=== PATIENT | female | born 1930 | race Caucasian/White ===

== ENCOUNTER 2017-02-17 13:40 | Inpatient (IN) | payer MEDICARE, OTHER ==
[~2017-02-17] VITALS: Ht 165.1 cm; Wt 73.0 kg
[2017-02-17] VITALS: BP 174/71
[2017-02-17 14:15] LABS: BASOPHILS % (AUTO) 0.4 % (0-1); EOSINOPHILS # (AUTO) 0.1 X10'3 (0-0.9); EOSINOPHILS % (AUTO) 1.2 % (0-6); HEMATOCRIT 41.8 % (35.0-45.0); HEMOGLOBIN 13.9 g/dl (12.0-16.0); LYMPHOCYTES # (AUTO) 1.7 X10'3 (1.1-4.8); LYMPHOCYTES % (AUTO) 17.7 % (21-51); MEAN CORPUSCULAR HEMOGLOBIN 30.1 PG (27.0-31.0); MEAN CORPUSCULAR HGB CONC 33.3 % (33.0-36.5); MEAN CORPUSCULAR VOLUME 90.5 FL (78-98); MEAN PLATELET VOLUME 7.7 FL (7.4-10.4); MONOCYTES # (AUTO) 0.9 X10'3 (0-0.9); MONOCYTES % (AUTO) 9.1 % (2-12); NEUTROPHILS # (AUTO) 6.8 X10'3 (1.8-7.7); NEUTROPHILS % (AUTO) 71.6 % (42-75); PLATELET COUNT 352 X10'3 (140-440); RED BLOOD COUNT 4.62 X10'6 (4.20-5.60); RED CELL DISTRIBUTION WIDTH 14.1 % (11.5-14.5); WHITE BLOOD COUNT 9.5 X10'3 (4.5-11.0)
[2017-02-17 14:25] LABS: INR 1.8 INR; PROTHROMBIN TIME 18.5 SECONDS (9.0-12.0)
[2017-02-17 14:30] LABS: ALANINE AMINOTRANSFERASE 318 U/L (12-78); ALBUMIN 3.7 G/DL (3.4-5.0); ALKALINE PHOSPHATASE 265 IU/L (46-116); ANION GAP 8 (8-16); ASPARTATE AMINO TRANSFERASE 584 U/L (10-37); BILIRUBIN,TOTAL 1.5 MG/DL (0.1-1.0); BLOOD UREA NITROGEN 19 MG/DL (7-18); BUN/CREATININE RATIO 19.2 (6.6-38.0); CALCIUM 10.3 MG/DL (8.5-10.1); CHLORIDE 102 MMOL/L (99-107); CREATININE 0.99 MG/DL (0.40-0.90); GLUCOSE 106 MG/DL (70-104); POTASSIUM 4.5 MMOL/L (3.5-5.1); SODIUM 141 MMOL/L (135-145); TOTAL PROTEIN 7.3 G/DL (6.4-8.2); eGFR 53 ML/MIN
[2017-02-17 16:00] LABS: CLARITY,URINE Clear (Clear); COLOR,URINE Dark Yellow (Yellow); GLUCOSE, URINE Negative (Neg); KETONES,URINE Trace mg/dl (Neg); LEUKOCYTE ESTERASE ,URINE Trace (Neg); NITRITES, URINE Negative (Neg); OCCULT BLOOD,URINE Negative (Neg); PROTEIN,URINE Negative (Neg)
[2017-02-17 16:02] LABS: UA COLLECTION TYPE CLN CATCH MIDSTREAM
[2017-02-17 16:07] LABS: BACTERIA,URINE NONE SEEN /HPF (Neg); MUCUS STRANDS NONE SEEN /LPF (Neg); RBC,URINE NONE SEEN /HPF (0-2); SQUAMOUS EPITHELIAL CELL,UR FEW /LPF (FEW); WBC,URINE NONE SEEN /HPF (0-4)
[2017-02-17 16:17] LABS: LIPASE 219 U/L (73-393); TROPONIN I < 0.04 NG/ML (0.0-0.05)
[2017-02-17] MEDS ORDERED: labetalol 20mg/4ml (5mg/ml) syringe IV ONE ×2 (16:25→17:20)
[2017-02-17] MEDS ORDERED: nitroGLYCERIN-Tridil 50MG/D5W 250 ML IV ONE (17:00)
[2017-02-17] MEDS ORDERED: hydrALAZINE 20mg/ml inj. IV PRN (17:15)
[2017-02-17] MEDS ORDERED: HYDROcodone/acetaminophen 5mg/325mg tablet PO PRN (17:20)
[2017-02-17] MEDS ORDERED: acetaminophen 325mg tablet PO PRN (17:20)
[2017-02-17] MEDS ORDERED: mag hydrox/Alum hydrox/simeth 30ml oral suspension PO PRN (17:20)
[2017-02-17] MEDS ORDERED: magnesium hydroxide 30ml (MOM) UD suspension PO PRN (17:20)
[2017-02-17] MEDS ORDERED: ondansetron/PF 4mg/2ml inj IV PRN (17:20)
[2017-02-17] MEDS ORDERED: labetalol 100mg tablet PO ONE (17:20)
[2017-02-17] MEDS ORDERED: diphenhydrAMINE 25mg capsule PO PRN (17:20)
[2017-02-17] MEDS ORDERED: morphine sulfate 8 MG/ML SYRINGE IV PRN ×2 (17:20)
[2017-02-17] MEDS ORDERED: AMIO100T4 PO (19:14)
[2017-02-17] MEDS ORDERED: LABE100T PO (19:14)
[2017-02-17] MEDS ORDERED: WARF5TAB PO (19:14)
[2017-02-17 19:35] VITALS: BP 142/69
[2017-02-17] MEDS ORDERED: metoprolol tartrate 1mg/ml inj IV SCH (20:00)
[2017-02-17] MEDS: normal saline 1000ml 1,000 ML IV SCH (20:16)
[2017-02-17] MEDS: heparin, porcine 5000 units/ml vial SQ SCH (20:27)
[2017-02-18] MEDS: temazepam 15mg capsule PO PRN ×2 (00:19→22:54)
[2017-02-18 04:00] VITALS: BP 117/39
[2017-02-18 05:13] LABS: BASOPHILS # (AUTO) 0.1 X10'3 (0-0.2); BASOPHILS % (AUTO) 1.2 % (0-1); EOSINOPHILS # (AUTO) 0.3 X10'3 (0-0.9); EOSINOPHILS % (AUTO) 6.4 % (0-6); HEMATOCRIT 36.7 % (35.0-45.0); HEMOGLOBIN 12.1 g/dl (12.0-16.0); LYMPHOCYTES # (AUTO) 1.1 X10'3 (1.1-4.8); LYMPHOCYTES % (AUTO) 24.9 % (21-51); MEAN CORPUSCULAR HEMOGLOBIN 30.1 PG (27.0-31.0); MEAN CORPUSCULAR HGB CONC 33.1 % (33.0-36.5); MEAN CORPUSCULAR VOLUME 90.9 FL (78-98); MEAN PLATELET VOLUME 8.1 FL (7.4-10.4); MONOCYTES # (AUTO) 0.5 X10'3 (0-0.9); MONOCYTES % (AUTO) 11.3 % (2-12); NEUTROPHILS # (AUTO) 2.6 X10'3 (1.8-7.7); NEUTROPHILS % (AUTO) 56.2 % (42-75); PLATELET COUNT 276 X10'3 (140-440); RED BLOOD COUNT 4.04 X10'6 (4.20-5.60); RED CELL DISTRIBUTION WIDTH 14.2 % (11.5-14.5); WHITE BLOOD COUNT 4.6 X10'3 (4.5-11.0)
[2017-02-18 06:03] LABS: ANION GAP 8 (8-16); BLOOD UREA NITROGEN 12 MG/DL (7-18); BUN/CREATININE RATIO 13.2 (6.6-38.0); CALCIUM 9.1 MG/DL (8.5-10.1); CHLORIDE 108 MMOL/L (99-107); CREATININE 0.91 MG/DL (0.40-0.90); GLUCOSE 90 MG/DL (70-104); POTASSIUM 4.1 MMOL/L (3.5-5.1); SODIUM 142 MMOL/L (135-145); TOTAL CARBON DIOXIDE 26.1 MMOL/L (24-32); eGFR 59 ML/MIN
[2017-02-18 07:00] VITALS: BP 127/54
[2017-02-18] MEDS ORDERED: heparin, porcine 5000 units/ml vial ONE (07:25)
[2017-02-18] MEDS: normal saline 1000ml 1,000 ML IV SCH ×2 (07:26→19:56)
[2017-02-18] MEDS: heparin, porcine 5000 units/ml vial SQ SCH ×2 (07:28→21:28)
[2017-02-18 09:18] LABS: ALANINE AMINOTRANSFERASE 1115 U/L (12-78); ALKALINE PHOSPHATASE 253 IU/L (46-116); ASPARTATE AMINO TRANSFERASE 1342 U/L (10-37); BILIRUBIN,DIRECT 1.6 MG/DL (0-0.3); BILIRUBIN,TOTAL 2.4 MG/DL (0.1-1.0)
[2017-02-18 12:00] VITALS: BP 166/66
[2017-02-18 18:11] LABS: INR 2.4 INR
[2017-02-18 18:30] VITALS: BP 159/81
[2017-02-18] MEDS ORDERED: warfarin 1mg tablet PO ONE (21:00)
[2017-02-18 21:15] VITALS: BP 147/57
[2017-02-18] MEDS: metoprolol tartrate 12.5mg (1/2 tablet) PO SCH (21:25)
[2017-02-19 00:26] VITALS: BP 125/59
[2017-02-19 05:28] LABS: BASOPHILS # (AUTO) 0.1 X10'3 (0-0.2); BASOPHILS % (AUTO) 2.1 % (0-1); EOSINOPHILS # (AUTO) 0.6 X10'3 (0-0.9); EOSINOPHILS % (AUTO) 11.6 % (0-6); HEMATOCRIT 37.6 % (35.0-45.0); HEMOGLOBIN 12.5 g/dl (12.0-16.0); LYMPHOCYTES # (AUTO) 1.9 X10'3 (1.1-4.8); LYMPHOCYTES % (AUTO) 36.8 % (21-51); MEAN CORPUSCULAR HEMOGLOBIN 30.4 PG (27.0-31.0); MEAN CORPUSCULAR HGB CONC 33.3 % (33.0-36.5); MEAN CORPUSCULAR VOLUME 91.5 FL (78-98); MEAN PLATELET VOLUME 8.2 FL (7.4-10.4); MONOCYTES # (AUTO) 0.6 X10'3 (0-0.9); MONOCYTES % (AUTO) 12.6 % (2-12); NEUTROPHILS # (AUTO) 1.9 X10'3 (1.8-7.7); NEUTROPHILS % (AUTO) 36.9 % (42-75); PLATELET COUNT 267 X10'3 (140-440); RED BLOOD COUNT 4.11 X10'6 (4.20-5.60); RED CELL DISTRIBUTION WIDTH 14.1 % (11.5-14.5)
[2017-02-19 06:02] LABS: INR 2.6 INR; PROTHROMBIN TIME 26.3 SECONDS (9.0-12.0)
[2017-02-19 06:12] LABS: ANION GAP 9 (8-16); BLOOD UREA NITROGEN 10 MG/DL (7-18); CHLORIDE 108 MMOL/L (99-107); GLUCOSE 92 MG/DL (70-104); POTASSIUM 4.2 MMOL/L (3.5-5.1); SODIUM 142 MMOL/L (135-145); TOTAL CARBON DIOXIDE 24.9 MMOL/L (24-32)
[2017-02-19 06:13] LABS: ALBUMIN 3.1 G/DL (3.4-5.0); BUN/CREATININE RATIO 11.4 (6.6-38.0); CALCIUM 8.7 MG/DL (8.5-10.1); CREATININE 0.88 MG/DL (0.40-0.90); eGFR 61 ML/MIN
[2017-02-19 07:00] VITALS: BP 156/79
[2017-02-19] MEDS: heparin, porcine 5000 units/ml vial SQ SCH (08:00)
[2017-02-19 08:08] LABS: HBSAG SCREEN Negative (Negative); HEP A AB, IGM Negative (Negative); HEPATITIS C ANTIBODY <0.1 s/co ratio (0.0-0.9)
[2017-02-19] MEDS: metoprolol tartrate 12.5mg (1/2 tablet) PO SCH (08:19)
[2017-02-19 08:43] LABS: ALANINE AMINOTRANSFERASE 990 U/L (12-78); ASPARTATE AMINO TRANSFERASE 697 U/L (10-37); BILIRUBIN,DIRECT 0.4 MG/DL (0-0.3); BILIRUBIN,TOTAL 0.9 MG/DL (0.1-1.0)
[2017-02-19 11:00] VITALS: BP 157/70
[2017-02-19 12:39] LABS: MONOTEST NEGATIVE (Neg)
[2017-02-19 13:51] LABS: CRYPTOSPORIDIUM AG NEGATIVE (Neg); GIARDIA LAMBLIA AG NEGATIVE (Neg)
[2017-02-19] MEDS: metoprolol tartrate 25mg tablet PO SCH (20:01)
[2017-02-19 20:47] VITALS: BP 158/71
[2017-02-19] MEDS ORDERED: warfarin 1mg tablet PO ONE (21:00)
[2017-02-19] MEDS: temazepam 15mg capsule PO PRN (22:25)
[2017-02-20] VITALS: BP 128/81
[2017-02-20 05:18] LABS: BASOPHILS # (AUTO) 0.1 X10'3 (0-0.2); BASOPHILS % (AUTO) 0.9 % (0-1); EOSINOPHILS # (AUTO) 0.6 X10'3 (0-0.9); EOSINOPHILS % (AUTO) 9.4 % (0-6); HEMATOCRIT 36.6 % (35.0-45.0); HEMOGLOBIN 12.1 g/dl (12.0-16.0); LYMPHOCYTES # (AUTO) 2.1 X10'3 (1.1-4.8); LYMPHOCYTES % (AUTO) 32.6 % (21-51); MEAN CORPUSCULAR HGB CONC 33.1 % (33.0-36.5); MEAN CORPUSCULAR VOLUME 90.5 FL (78-98); MEAN PLATELET VOLUME 8.5 FL (7.4-10.4); MONOCYTES # (AUTO) 0.8 X10'3 (0-0.9); MONOCYTES % (AUTO) 12.4 % (2-12); NEUTROPHILS # (AUTO) 2.9 X10'3 (1.8-7.7); NEUTROPHILS % (AUTO) 44.7 % (42-75); PLATELET COUNT 289 X10'3 (140-440); RED BLOOD COUNT 4.04 X10'6 (4.20-5.60); RED CELL DISTRIBUTION WIDTH 14.3 % (11.5-14.5); WHITE BLOOD COUNT 6.5 X10'3 (4.5-11.0)
[2017-02-20 05:25] LABS: INR 1.7 INR; PROTHROMBIN TIME 17.1 SECONDS (9.0-12.0)
[2017-02-20 05:32] LABS: ALBUMIN 2.9 G/DL (3.4-5.0); ANION GAP 6 (8-16); BLOOD UREA NITROGEN 10 MG/DL (7-18); BUN/CREATININE RATIO 11.2 (6.6-38.0); CALCIUM 8.7 MG/DL (8.5-10.1); CHLORIDE 108 MMOL/L (99-107); CREATININE 0.89 MG/DL (0.40-0.90); GLUCOSE 90 MG/DL (70-104); POTASSIUM 3.8 MMOL/L (3.5-5.1); SODIUM 141 MMOL/L (135-145); TOTAL CARBON DIOXIDE 27.3 MMOL/L (24-32); eGFR 60 ML/MIN
[2017-02-20 07:47] VITALS: BP 177/75
[2017-02-20] MEDS: metoprolol tartrate 25mg tablet PO SCH (09:16)
[2017-02-20 10:30] LABS: ALANINE AMINOTRANSFERASE 659 U/L (12-78); ASPARTATE AMINO TRANSFERASE 262 U/L (10-37)
[2017-02-21 05:21] LABS: AFP,SERUM, TUMOR MARKER 1.9 ng/mL (0.0-8.3); CARCINOEMBRYONIC ANTIGEN 3.9 ng/mL (0.0-4.7)
[2017-02-22 05:23] LABS: CYTOMEGALOVIRUS AB, IGG <0.60 U/mL (0.00-0.59); CYTOMEGALOVIRUS AB, IGM <30.0 AU/mL (0.0-29.9)
== END 2017-02-20 11:33 | disposition home or self-care (01) | DRG 442 ==
LOC: ER 13:42 → ED HOLD 17:20 → SUR 3N 19:33
PROVIDERS: ADMIT Family Medicine; ATTEND Family Medicine
DX: B17.9 Acute viral hepatitis, unspecified (principal); D68.8 Other specified coagulation defects; D72.1 Eosinophilia; I16.0 Hypertensive urgency; I48.0 Paroxysmal atrial fibrillation; K76.89 Other specified diseases of liver; R74.8 Abnormal levels of other serum enzymes; E78.5 Hyperlipidemia, unspecified; I10 Essential (primary) hypertension; K59.00 Constipation, unspecified; M19.90 Unspecified osteoarthritis, unspecified site; R19.7 Diarrhea, unspecified; Z96.653 Presence of artificial knee joint, bilateral; F17.210 Nicotine dependence, cigarettes, uncomplicated; Z90.49 Acquired absence of other specified parts of digestive tract; Z90.710 Acquired absence of both cervix and uterus; Z88.8 Allergy status to other drugs, medicaments and biological substances; Z79.01 Long term (current) use of anticoagulants; Z83.3 Family history of diabetes mellitus
CPT/HCPCS: 36415; 71010; 74176; 74181; 76700; 80048; 80053; 80076; 80329; 81001; 82103; 82247; 82248; 82378; 83605; 83690; 84450; 84460; 84484; 85025; 85610; 86308; 86644; 86645; 86706; 86709; 86753; 86803; 87045; 87046; 87070; 87088; 87328; 87329; 87336; 87340; 93005; 96374; 99285; J0360; J1644; J2270; J3490; J7030

== ENCOUNTER 2018-06-29 13:17 | Emergency (ER) | payer MEDICARE, OTHER ==
[~2018-06-29] VITALS: Ht 167.6 cm; Wt 71.0 kg
[~2018-06-29 13:17] MED LIST: LABE100T5 PO; WARF5TAB PO
[2018-06-29 13:25] VITALS: BP 135/89
[2018-06-29 13:58] LABS: BASOPHILS # (AUTO) 0.1 X10'3 (0-0.2); BASOPHILS % (AUTO) 1.3 % (0-1); EOSINOPHILS # (AUTO) 0.2 X10'3 (0-0.9); LYMPHOCYTES # (AUTO) 1.7 X10'3 (1.1-4.8); LYMPHOCYTES % (AUTO) 18.4 % (21-51); MEAN CORPUSCULAR HEMOGLOBIN 30.5 PG (27.0-31.0); MEAN CORPUSCULAR HGB CONC 33.4 g/dL (33.0-36.5); MEAN CORPUSCULAR VOLUME 91.4 FL (78-98); MEAN PLATELET VOLUME 8.1 FL (7.4-10.4); MONOCYTES % (AUTO) 10.4 % (2-12); NEUTROPHILS # (AUTO) 6.4 X10'3 (1.8-7.7); NEUTROPHILS % (AUTO) 67.9 % (42-75); PLATELET COUNT 332 X10'3 (140-440); RED BLOOD COUNT 4.59 X10'6 (4.20-5.60); RED CELL DISTRIBUTION WIDTH 14.5 % (11.5-14.5); WHITE BLOOD COUNT 9.4 X10'3 (4.5-11.0)
[2018-06-29 14:03] LABS: INR 1.6 INR; PROTHROMBIN TIME 16.2 SECONDS (9.0-12.0)
[2018-06-29 14:04] LABS: ALANINE AMINOTRANSFERASE 48 U/L (12-78); ALBUMIN 3.6 G/DL (3.4-5.0); ALBUMIN/GLOBULIN RATIO 1.1 (1.1-1.5); ALKALINE PHOSPHATASE 118 IU/L (46-116); ANION GAP 9 (8-16); ASPARTATE AMINO TRANSFERASE 74 U/L (10-37); BILIRUBIN,TOTAL 0.7 MG/DL (0.1-1.0); BLOOD UREA NITROGEN 12 MG/DL (7-18); BUN/CREATININE RATIO 11.7 (6.6-38.0); CALCIUM 9.3 MG/DL (8.5-10.1); CHLORIDE 104 MMOL/L (99-107); CREATININE 1.03 MG/DL (0.40-0.90); GLUCOSE 113 MG/DL (70-104); POTASSIUM 4.1 MMOL/L (3.5-5.1); SODIUM 139 MMOL/L (135-145); TOTAL PROTEIN 6.9 G/DL (6.4-8.2); eGFR 51 ML/MIN
[2018-06-29 14:30] LABS: CLARITY,URINE CLOUDY (Clear); COLOR,URINE YELLOW (Yellow); GLUCOSE, URINE NEGATIVE (Neg); KETONES,URINE NEGATIVE (Neg); LEUKOCYTE ESTERASE ,URINE SMALL (Neg); NITRITES, URINE NEGATIVE (Neg); OCCULT BLOOD,URINE NEGATIVE (Neg); PH,URINE 8.5 (4.8-8.0); PROTEIN,URINE TRACE mg/dl (Neg); UROBILINOGEN,URINE 0.2 E.U/dL (0.2-1.0)
[2018-06-29 14:31] LABS: UA COLLECTION TYPE CLN CATCH MIDSTREAM
[2018-06-29 14:40] LABS: AMORPHOUS PHOSPHATES 2+; BACTERIA,URINE 1+ /HPF (Neg); MUCUS STRANDS FEW /LPF (Neg); RBC,URINE NONE SEEN /HPF (0-2); SQUAMOUS EPITHELIAL CELL,UR FEW /LPF (FEW); TRIPLE PHOSPHATE CRYST 1+ /HPF (NEGATIVE)
== END 2018-06-29 15:24 | disposition home or self-care (01) ==
LOC: ER 13:18
DX: G89.29 Other chronic pain (principal); R10.84 Generalized abdominal pain; R11.2 Nausea with vomiting, unspecified; R61 Generalized hyperhidrosis; J44.9 Chronic obstructive pulmonary disease, unspecified; I50.9 Heart failure, unspecified; I11.0 Hypertensive heart disease with heart failure; F17.200 Nicotine dependence, unspecified, uncomplicated; Z88.8 Allergy status to other drugs, medicaments and biological substances; Z79.899 Other long term (current) drug therapy; Z79.01 Long term (current) use of anticoagulants; Z90.49 Acquired absence of other specified parts of digestive tract; Z98.890 Other specified postprocedural states
CPT/HCPCS: 36415; 80053; 81001; 85025; 85610; 87088; 93005; 99284

== ENCOUNTER 2020-08-06 15:28 | Emergency (ER) | payer MEDICARE ==
[~2020-08-06] VITALS: Ht 167.6 cm; Wt 58.2 kg
[~2020-08-06 15:28] MED LIST changes: -WARF5TAB PO; +WARF5TAB2 PO
[2020-08-06 16:18] LABS: BASOPHILS # (AUTO) 0.1 X10'3 (0-0.2); EOSINOPHILS # (AUTO) 0.1 X10'3 (0-0.9); EOSINOPHILS % (AUTO) 1.3 % (0-6); HEMATOCRIT 36.1 % (35.0-45.0); LYMPHOCYTES # (AUTO) 1.1 X10'3 (1.1-4.8); LYMPHOCYTES % (AUTO) 15.8 % (21-51); MEAN CORPUSCULAR HEMOGLOBIN 30.4 PG (27.0-31.0); MEAN CORPUSCULAR HGB CONC 33.4 g/dL (33.0-36.5); MEAN PLATELET VOLUME 7.9 FL (7.4-10.4); MONOCYTES # (AUTO) 0.7 X10'3 (0-0.9); MONOCYTES % (AUTO) 9.9 % (2-12); NEUTROPHILS # (AUTO) 4.9 X10'3 (1.8-7.7); PLATELET COUNT 295 X10'3 (140-440); RED BLOOD COUNT 3.96 X10'6 (4.20-5.60); RED CELL DISTRIBUTION WIDTH 14.3 % (11.5-14.5); WHITE BLOOD COUNT 6.8 X10'3 (4.5-11.0)
[2020-08-06 16:22] VITALS: BP 176/68
[2020-08-06 16:33] LABS: ALANINE AMINOTRANSFERASE 477 U/L (12-78); ALBUMIN 3.2 G/DL (3.4-5.0); ALBUMIN/GLOBULIN RATIO 0.9 (1.1-1.5); ALKALINE PHOSPHATASE 258 IU/L (46-116); ANION GAP 11 (8-16); ASPARTATE AMINO TRANSFERASE 511 U/L (10-37); BILIRUBIN,TOTAL 2.4 MG/DL (0.1-1.0); BLOOD UREA NITROGEN 14 MG/DL (7-18); BUN/CREATININE RATIO 18.4 (6.6-38.0); CALCIUM 8.7 MG/DL (8.5-10.1); CHLORIDE 98 MMOL/L (99-107); CREATININE 0.76 MG/DL (0.40-0.90); GLUCOSE 97 MG/DL (70-104); PARTIAL THROMBOPLASTIN TIME 46 SECONDS (22-32); POTASSIUM 4.5 MMOL/L (3.5-5.1); SODIUM 132 MMOL/L (135-145); TOTAL PROTEIN 6.8 G/DL (6.4-8.2); eGFR 72 ML/MIN
[2020-08-06] MEDS ORDERED: morphine 4 MG/ML inj SYRINge IV ONE (16:35)
[2020-08-06] MEDS ORDERED: iohexol 350MG/ML 100ml bottle IV ONE (16:49)
[2020-08-06] MEDS ORDERED: ketorolac trometh. 30mg/ml inj. IV ONE (18:40)
[2020-08-06] MEDS ORDERED: fentaNYL/PF 50MCG/1 ML 2ML syringe IV ONE (18:40)
[2020-08-06 19:00] LABS: CLARITY,URINE SLIGHTLY CLOUDY (Clear); GLUCOSE, URINE NEGATIVE (Neg); KETONES,URINE NEGATIVE (Neg); LEUKOCYTE ESTERASE ,URINE TRACE (Neg); NITRITES, URINE NEGATIVE (Neg); OCCULT BLOOD,URINE NEGATIVE (Neg); PH,URINE 7.5 (4.8-8.0); PROTEIN,URINE NEGATIVE (Neg)
[2020-08-06 19:13] LABS: COLOR,URINE DARK YELLOW (Yellow); UA COLLECTION TYPE CLN CATCH MIDSTREAM
[2020-08-06 19:15] LABS: BACTERIA,URINE 1+ /HPF (Neg); RBC,URINE 0-2 /HPF (0-2); SQUAMOUS EPITHELIAL CELL,UR MODERATE /LPF (FEW); WBC,URINE 0-4 /HPF (0-4)
[2020-08-06] MEDS ORDERED: TRAM50TA2 PO (19:37)
== END 2020-08-06 19:54 | disposition home or self-care (01) ==
LOC: ER 15:29
DX: N39.0 Urinary tract infection, site not specified (principal); R16.0 Hepatomegaly, not elsewhere classified; R74.8 Abnormal levels of other serum enzymes; R10.84 Generalized abdominal pain; I11.0 Hypertensive heart disease with heart failure; I50.9 Heart failure, unspecified; J44.9 Chronic obstructive pulmonary disease, unspecified; Z90.49 Acquired absence of other specified parts of digestive tract; Z98.890 Other specified postprocedural states; Z72.89 Other problems related to lifestyle; Z88.8 Allergy status to other drugs, medicaments and biological substances; Z79.899 Other long term (current) drug therapy
CPT/HCPCS: 36415; 71045; 74174; 80053; 81001; 83605; 83880; 84484; 85025; 85610; 85730; 87040; 87088; 93005; 96374; 96375; 99285; J1885; J2270; Q9967